=== PATIENT | male | born 1950 | race Caucasian/White ===

== ENCOUNTER → 2017-03-01 | Outpatient (CLI) | payer MEDICARE, OTHER ==
[~2017-03-01] MED LIST: ACETAMINOPHEN-H1 TAB PO; AMARYL 4MG. TAB4 MG PO; ASPIRIN ADULT L81 M3 PO; FLOMAX0.4 MG PO; HYDROCHLOROTHIA25 M1 PO; HYDROCODONE-APA1 TA2 PO; LANTUS INS100 UNITS/ SC; METFORMIN1000 MG PO; NITROGLYCERIN0.4 MG SL; Novolog100 U/ML SC; PLAVIX75 MG PO; PRAVASTATIN SOD80 MG PO; RANITIDINE150 M1 PO; RITE AID ASPIRI81 M1 PO; TARKA 4 MG-2401 TER PO; TOPROL XL 100M100 MG PO
--- NOTE | 2017-03-01 08:43 | CARDIOVASCULAR REPORT ---
"Cerebrovascular Exam Indications: 433.10 Occlusion/stenosis of carotid artery without cerebral infarction. IMPRESSIONS 1. The bilateral vertebral arteries are patent with normal antegrade flow. 2. Study suggests 20-49%((lower end of scale)stenosis involving the right internal carotid artery and the left internal carotid artery. No change from the study of 06-Apr-2015. History: Coronary artery disease. Risk factors: Hypertension. Diabetes mellitus. Hyperlipidemia. Carotid duplex study. Complete study and Doppler flow study including spectral analysis, color and bravo scale imaging. Location: Vascular laboratory. Patient status: Outpatient. Tables: Arterial flow: + +--------+--------+ |Location |V sys |V ed | + +--------+--------+ |Right CCA - proximal|96.6cm/s|22cm/s | + +--------+--------+ |Right CCA - distal |97.4cm/s|25.1cm/s| + +--------+--------+ |Right ECA |223cm/s |--------| + +--------+--------+ |Right ICA - proximal|117cm/s |24.6cm/s| + +--------+--------+ |Right ICA - mid |82.5cm/s|23.6cm/s| + +--------+--------+ |Right ICA - distal |70.7cm/s|19.6cm/s| + +--------+--------+ |Right vertebral |64.8cm/s|--------| + +--------+--------+ |Left CCA - proximal |100cm/s |21.6cm/s| + +--------+--------+ |Left CCA - distal |103cm/s |20.6cm/s| + +--------+--------+ |Left ECA |171cm/s |--------| + +--------+--------+ |Left ICA - proximal |112cm/s |22.6cm/s| + +--------+--------+ |Left ICA - mid |80.5cm/s|24.6cm/s| + +--------+--------+ |Left ICA - distal |79.6cm/s|27.5cm/s| + +--------+--------+ |Left vertebral |48.1cm/s|--------| + +--------+--------+ Velocity ratios: + + + + + + | |Right, V sys|Right, V ed|Left, V sys|Left, V ed| + + + + + + |Max ICA/dist CCA|1.2 |0.98 |1.09 |1.33 | + + + + + + (Report amended ) Electronically signed by: Linus Parson [id number]"
== END ==
LOC: RT 08:00
DX: I65.23 Occlusion and stenosis of bilateral carotid arteries (principal); I25.10 Atherosclerotic heart disease of native coronary artery without angina pectoris; E11.9 Type 2 diabetes mellitus without complications; I10 Essential (primary) hypertension; E78.5 Hyperlipidemia, unspecified; Z01.818 Encounter for other preprocedural examination

== ENCOUNTER 2017-03-12 07:40 | Day surgery (SDC) | payer MEDICARE, OTHER ==
[~2017-03-12] VITALS: Ht 172.7 cm; Wt 76.7 kg
--- NOTE | 2017-03-12 09:31 | Operative Note ---
Endoscopy Report Date: 03/12/17 Preoperative diagnosis: Abdominal pain Procedure Type of procedure: Total colonoscopy to terminal ileum with snare polypectomy and biopsies Indications: Patient is referred by Dr. Mark Fontenot for left-sided abdominal pain. Patient is a 62-year-old white male. He states that he has "gut problems". He's had some symptoms for about 2 months. He describes some significant soreness and tenderness in the LEFT lower quadrant and what he describes as a bulge. He also has some focal tenderness in the RIGHT lower quadrant. He's had constipation associated with this. This is something new. Patient had previously undergone bilateral inguinal hernia repairs in the past. He had midline laparotomy for an apparent umbilical hernia in the 1970s. Patient underwent CT scan prior to presentation to the office. CT scan reveals small bilateral inguinal hernias but no evidence of any abdominal wall hernia. Patient states that he believes he had a colonoscopy 1 year ago. I reviewed the record and his last colonoscopy was 05/04/[address] Jaeger. Colonoscopy prior to that apparently had revealed tubular adenomas. Plan was made to proceed with colonoscopy initially given the nature of his symptoms, lack of hernia on CT scan or imaging, and prior history. On the morning of the procedure patient anxious state that he had pain in the RIGHT lower quadrant. He also had constipation. Consent was obtained and patient taken to same-day surgery endoscopy procedure room. Positioned in a lateral position. Adequate intravenous sedation was achieved. This was done with titration of propofol by anesthesia personnel. Variable stiffness Olympus colonoscope was inserted via the anus. With some minor difficulty was advanced to the cecum as he had a very floppy redundant atonic sigmoid colon. Colonic preparation was fair as there was particulate liquid stool throughout the colon. Suction and irrigation was performed throughout the colon to achieve visualization. Ileocecal valve and appendiceal orifice were identified and the colonoscope was advanced into the terminal ileum which appeared grossly normal. A couple of random biopsies were obtained of the terminal ileum. Colonoscope was withdrawn through the colon. In the ascending colon there was a sessile adenomatous appearing polyp removed with hot snare. Near the hepatic flexure there was no additional polyp removed with hot snare. Random biopsies were obtained differentiating RIGHT and LEFT. There was a diminutive lymphoid nodule type lesion near the hepatic flexure removed with cold biopsy forceps. Within the sigmoid colon there was a large diverticuli none of which appeared to be actively inflamed. Retroflexion within the rectum revealed some internal hemorrhoids. Findings 1. Polyp 2. Diverticulosis 3. Internal Hemorrhoids Follow-Up Follow-Up: Is very possible that his symptoms are secondary to functional constipation given the findings on colonoscopy. Follow-up on the results of the polyps. Given the suboptimal preparation, and polyps as well as prior history of polyps likely plan for repeat colonoscopy in 3 years. May benefit from fiber supplementation and GlycoLax. at 0930
[2017-03-12 10:06] VITALS: BP 123/68
== END 2017-03-12 10:00 | disposition home or self-care (01) ==
LOC: SDC 07:40
PROVIDERS: Surgery
PROC: 0DBL8ZX Excision of Transverse Colon, Via Natural or Artificial Opening Endoscopic, Diagnostic (ICD-10-PCS; 2017-03-12)
PROC: 0DBB8ZX Excision of Ileum, Via Natural or Artificial Opening Endoscopic, Diagnostic (ICD-10-PCS; 2017-03-12)
PROC: 0DBK8ZX Excision of Ascending Colon, Via Natural or Artificial Opening Endoscopic, Diagnostic (ICD-10-PCS; principal; 2017-03-12 08:30)
DX: K57.90 Diverticulosis of intestine, part unspecified, without perforation or abscess without bleeding (principal); R10.31 Right lower quadrant pain; Z86.010 Personal history of colon polyps; K63.5 Polyp of colon; E11.9 Type 2 diabetes mellitus without complications

== ENCOUNTER → 2017-03-28 | Outpatient (CLI) | payer MEDICARE, OTHER ==
--- NOTE | 2017-03-28 09:49 | RADIOLOGY REPORT PS360 ---
US RUQ-(ABD LTD)1ORGAN/QUAD/FU HISTORY: UPPER ABD PAIN ORDERING PHYSICIAN: Ethan Felix MD PATIENT AGE: 66 years COMPARISON: None FINDINGS: PANCREAS:Unremarkable. No obvious mass or abnormal fluid collection. No ductal dilatation LIVER:No focal liver lesions demonstrated. Homogeneous echogenicity. No intrahepatic biliary ductal dilatation evident. There is some increased echogenicity of the liver with decreased through transmission of sound consistent with hepatic steatosis RIGHT KIDNEY:Unremarkable. Normal size and echogenicity. No hydronephrosis GALLBLADDER:Gallstones are present. No gallbladder wall thickening, pericholecystic fluid, or biliary dilatation. Common bile duct is 3 mm. IMPRESSION: 1. Cholelithiasis. 2. Fatty liver
--- NOTE | 2017-03-28 10:57 | RADIOLOGY REPORT PS360 ---
UGI SERIES W/ AIR HISTORY: UPPER ABD PAIN ORDERING PHYSICIAN: Ethan Felix MD PATIENT AGE: 66 years Fluoroscopy time: 1 minute and 36 seconds COMPARISON: None FINDINGS: The esophagus, stomach, and duodenum have an unremarkable appearance. There is a small sliding hiatal hernia with a nonconstricting Schatzki's ring. No ulcer or mass evident. No mucosal abnormalities apparent. There is normal peristalsis. The duodenal C-loop is nondisplaced. There is a small duodenal diverticulum projecting off the descending portion of the duodenum. IMPRESSION: 1. Small sliding hiatal hernia 2. Small duodenal diverticulum. 3. Otherwise negative upper GI
== END ==
LOC: RAD 07:50
DX: R10.11 Right upper quadrant pain (principal)